=== PATIENT | female | born 1960 | race Caucasian/White ===

== ENCOUNTER 2017-01-15 10:00 | Inpatient (IN) ==
[2017-01-15 12:07] LABS: Appearance,Urine HAZY; Bilirubin,Urine NEG (NEG); Color,Urine YELLOW; Glucose,Urine (UA) NEGATIVE (NEG); Leukocyte Esterase,Urine NEG /uL (NEG); Nitrate,Urine NEG (NEG); Protein,Urine NEG (NEG); Specific Gravity,Urine 1.014 (1.000-1.035); Urine Blood NEG mg/dL (<0.03); Urobilinogen,Urine NEG (NEG)
[2017-01-15 13:59] LABS: Basophils # (Auto) 0 K/mcL (0.0-0.3); Basophils % (Auto) 0.4 % (0.0-2.0); Eosinophils # (Auto) 0.1 K/mcL (0.0-0.7); Eosinophils % (Auto) 2.7 % (0.0-7.0); Granulocytes % (Auto) 67.6 % (38.0-78.0); Lymphocytes # (Auto) 1.2 K/mcL (1.5-4.8); Mean Cell Volume 89.5 fL (80.0-100.0); Mean Corpuscular HGB Conc 33.3 g/dL (31.0-36.0); Mean Corpuscular Hemoglobin 29.8 pg (26.0-34.0); Monocytes # (Auto) 0.3 K/mcL (0.1-0.9); Monocytes % (Auto) 5.3 % (1.0-12.0); Platelet Count 215 K/mcL (140-440); RBC 4.48 M/mcL (4.00-5.20); Red Cell Distribution Width 15.2 % (11.5-14.5)
[2017-01-15 14:01] LABS: Blood Urea Nitrogen 8 mg/dl (6-20)
[2017-01-19] MEDS ORDERED: PREGABALIN 75 MG CAPSULE PO SCH (06:00)
[2017-01-19] MEDS ORDERED: CELECOXIB 200 MG CAPSULE PO SCH (06:00)
[2017-01-19] MEDS ORDERED: ceFAZolin 1 GM VIAL IV SCH (06:00)
[2017-01-19] MEDS ORDERED: oxyCODONE 10 MG TAB.ER.12H PO SCH (06:00)
[2017-01-19] MEDS ORDERED: ACETAMINOPHEN 500 MG TABLET PO SCH (06:00)
[2017-01-19] MEDS ORDERED: KETOROLAC 30 MG, ROPIVACAINE HCL/PF 49.5 ML, EPINEPHrine 0.5 MG, 0.9 % SODIUM CHLORIDE ... IJ ONE (07:30)
[2017-01-19] MEDS ORDERED: GLYCOPYRROLATE 0.2 MG/ML VIAL IV ONE (12:20)
[2017-01-19] MEDS ORDERED: TRANEXAMIC ACID 1,000 MG/10 ML VIAL IV ONE (12:20)
[2017-01-19] MEDS ORDERED: KETAMINE 100 MG/ML ML IV ONE (12:20)
[2017-01-19] MEDS ORDERED: PHENYLEPHRINE 10 MG/ML VIAL IV ONE (12:20)
[2017-01-19] MEDS ORDERED: ONDANSETRON 4 MG/2 ML VIAL IV ONE (12:20)
[2017-01-19] MEDS ORDERED: PROPOFOL 200 MG/20 ML VIAL IV ONE (12:20)
[2017-01-19] MEDS ORDERED: LIDOCAINE HCL/PF 100 MG/5 ML SYRINGE IV ONE (12:20)
[2017-01-19] MEDS ORDERED: ESMOLOL 100 MG/10 ML VIAL IV ONE (12:20)
[2017-01-19] MEDS ORDERED: BUPIVACAINE PF 0.5% 30 ML VIAL IJ ONE (12:20)
[2017-01-19] MEDS ORDERED: MIDAZOLAM 2 MG/2 ML VIAL IV ONE (12:20)
[2017-01-19] MEDS ORDERED: GENTAMICIN SULFATE 800 MG/20 ML VIAL IR ONE (12:40)
[2017-01-19] MEDS ORDERED: IPRATROPIUM/ALBUTEROL 3 ML AMPUL.NEB NEB PRN (13:50)
[2017-01-19] MEDS ORDERED: METHOCARBAMOL 1,000 MG/10 ML VIAL IV PRN (13:50)
[2017-01-19] MEDS ORDERED: MEPERIDINE 25 MG/ML SYRINGE IV PRN (13:50)
[2017-01-19] MEDS ORDERED: BENZOCAINE/MENTHOL 1 LOZENGE PO PRN ×2 (13:50→13:53)
[2017-01-19] MEDS ORDERED: ONDANSETRON 4 MG/2 ML VIAL IV PRN ×2 (13:50→13:53)
[2017-01-19] MEDS ORDERED: ePHEDrine 50 MG/ML AMPUL IV PRN (13:50)
[2017-01-19] MEDS ORDERED: fentaNYL 100 MCG/2 ML VIAL IV PRN (13:50)
--- NOTE | 2017-01-19 13:52 | Brief Operative Note ---
Date of procedure: 01/19/17 Pre-op diagnosis: Left knee djd Post-op diagnosis: same Procedure: Left TKA cemented Grafts/Implants: Yes Anesthesia: GETA Complications Description: 01/19/17 13:52 none Surgeon: Moses Powell Heat Treater Apprentice: Billy Amador Estimated blood loss (cc): 20 Tourniquet Time (Minutes): 50 Specimens Removed/Pathology: none sent Condition: stable Disposition: PACU
[2017-01-19] MEDS ORDERED: HYDROmorphone 2 MG/ML SYRINGE IV PRN (13:53)
[2017-01-19] MEDS ORDERED: MAGNESIUM HYDROXIDE 30 ML ORAL.SUSP PO PRN (13:53)
[2017-01-19] MEDS ORDERED: FLEETS ADULT ENEMA PR PRN (13:53)
[2017-01-19] MEDS ORDERED: ACETAMINOPHEN 325 MG TABLET PO PRN (13:53)
[2017-01-19] MEDS ORDERED: BISACODYL 10 MG SUPP.RECT PR PRN (13:53)
[2017-01-19] MEDS ORDERED: POLYETHYLENE GLYCOL 3350 17 GM PACKET PO PRN (13:53)
[2017-01-19] MEDS ORDERED: TEMAZEPAM 15 MG CAPSULE PO PRN (13:53)
[2017-01-19] MEDS ORDERED: TRANEXAMIC ACID 1,000 MG/10 ML VIAL IV SCH (13:53)
[2017-01-19] MEDS ORDERED: SUMAtriptan SUCCINATE 25 MG TABLET PO PRN (13:56)
[2017-01-19] MEDS ORDERED: TRAMADOL 100 MG PO PRN (13:56)
[2017-01-19] MEDS ORDERED: LACTATED RINGERS 1,000 ML IV SCH (14:00)
--- NOTE | 2017-01-19 14:57 | XRay Report ---
HISTORY: Reason for Exam:Post-Op Total Knee FINDINGS: There is a well positioned total knee prosthesis. No fracture is present. There are no abnormal soft tissue calcifications. IMPRESSION: Well-positioned left knee prosthesis Interpreted and Authenticated by: Anders Aden 01/19/17
[2017-01-19] MEDS: 0.9 % SODIUM CHLORIDE 10 ML SYRINGE IV SCH ×2 (15:18→22:38)
[2017-01-19] MEDS: 0.45 % SODIUM CHLORIDE 1,000 ML IV SCH (15:18)
[2017-01-19] MEDS: ACETAMINOPHEN 1,000 MG/100 ML BOTTLE IV SCH ×2 (16:05→23:03)
[2017-01-19] MEDS: KETOROLAC 15 MG/ML VIAL IV SCH (17:26)
[2017-01-19] MEDS: ASPIRIN 325 MG ENTERIC COATED TABLET PO SCH (20:21)
[2017-01-19] MEDS: DOCUSATE SODIUM 100 MG CAPSULE PO SCH (20:21)
[2017-01-19] MEDS: HYDROXYCHLOROQUINE 200 MG TABLET PO SCH (20:21)
[2017-01-19] MEDS: ceFAZolin 1 GM VIAL IV SCH (20:21)
[2017-01-19] MEDS: DULoxetine 30 MG CAPSULE PO SCH (20:21)
[2017-01-19] MEDS: HYDROcodone/APAP 10/325MG TABLET PO PRN ×2 (20:38→21:40)
[2017-01-19] MEDS ORDERED: Melatonin [Melatonin] 3 MG Tablet PO SCH (21:00)
[2017-01-19] MEDS ORDERED: SIMVASTATIN 20 MG TABLET PO SCH (21:00)
[2017-01-19] MEDS ORDERED: traZODone HCL 150 MG TABLET PO SCH (21:00)
[2017-01-19] MEDS ORDERED: TOPIRAMATE 25 MG TABLET PO SCH (21:00)
[2017-01-19] MEDS ORDERED: FLUTICASONE PROPIONATE SPRAY.NAS NS SCH (21:00)
[2017-01-19] MEDS ORDERED: SENNOSIDES 1 TABLET PO SCH (21:00)
[2017-01-20] MEDS: KETOROLAC 15 MG/ML VIAL IV SCH ×3 (00:08→11:42)
[2017-01-20] MEDS: 0.45 % SODIUM CHLORIDE 1,000 ML IV SCH ×3 (00:29→13:23)
[2017-01-20] MEDS ORDERED: ACETAMINOPHEN 1,000 MG/100 ML BOTTLE IV PRN (01:16)
[2017-01-20] MEDS: HYDROcodone/APAP 10/325MG TABLET PO PRN ×2 (02:20→09:34)
[2017-01-20] MEDS: ceFAZolin 1 GM VIAL IV SCH (04:09)
[2017-01-20] MEDS: 0.9 % SODIUM CHLORIDE 10 ML SYRINGE IV SCH ×2 (05:11→14:29)
[2017-01-20] MEDS ORDERED: LEVOTHYROXINE 50 MCG TABLET PO SCH (07:30)
--- NOTE | 2017-01-20 08:09 | Discharge Summary ---
Ortho Discharge - TKA - Patient Instructions Diet: Regular Diet Activity: activity as tolerated, weight bearing as tolerated Total Knee Protocol: For Total Knee: Start ROM FLORENCE with stationary bike or rocking chair. Work on gaining full extension of knee. Posterior dislocation precautions provided. Hip abductor strengthening and gait training instructions provided. Apply Cryocuff as instructed. Dressing Care: Aquacel Ag - leave on for 5 days Patient Education: Total Knee Replacement (DC) Additional Instructions: CPM for home use. Your physical Therapy has been scheduled with [facility]. - Follow Up Plan Follow Up Appointments: Billy Amador PA-C [Physician Regional Airline Pilot] - 02/03/17 8:10 am Disposition: Home, Self-Care Prognosis: Good Rehab Potential: Good I certify that the patient requires SNF services: Yes Overall status at discharge: patient is progressing back to baseline - Orders For Discharge Additional Discharge Orders: Physical Therapy at Discharge - TKA Location: Determined By Patient CPM Discharge Order Location: Determined By Patient Toilet Riser Discharge Order Location: Determined By Patient Walker Location: Determined By Patient
[2017-01-20] MEDS: HYDROXYCHLOROQUINE 200 MG TABLET PO SCH (08:25)
[2017-01-20] MEDS: DULoxetine 30 MG CAPSULE PO SCH (08:26)
[2017-01-20] MEDS: DOCUSATE SODIUM 100 MG CAPSULE PO SCH (08:26)
[2017-01-20] MEDS: ASPIRIN 325 MG ENTERIC COATED TABLET PO SCH (08:26)
[2017-01-20] MEDS ORDERED: VITAMIN D3 1,000 UNIT TABLET PO SCH (09:00)
[2017-01-20] MEDS ORDERED: CHOLECALCIFEROL 50000 UNIT PO SCH (09:00)
[2017-01-20] MEDS ORDERED: MAGNESIUM PO SCH (09:00)
[2017-01-20] MEDS ORDERED: [UNRECOGNIZED DRUG - OTHER] PO SCH (09:00)
[2017-01-20] MEDS ORDERED: VIT C PO SCH (09:00)
[2017-01-20] MEDS ORDERED: FOLIC ACID 1 MG TABLET PO SCH (09:00)
[2017-01-20] MEDS ORDERED: amLODIPine 5 MG TABLET PO SCH (09:00)
[2017-01-20] MEDS ORDERED: MSM PO SCH (09:00)
[2017-01-20] MEDS ORDERED: CITALOPRAM 20 MG TABLET PO SCH (09:00)
[2017-01-20] MEDS ORDERED: LORATADINE 10 MG TABLET PO SCH (09:00)
[2017-01-20] MEDS ORDERED: GLUC SU PO SCH (09:00)
[2017-01-20] MEDS ORDERED: CALCIUM W/VIT D3 500 MG TABLET PO SCH (09:00)
[2017-01-20] MEDS ORDERED: ASCORBIC ACID 500 MG TABLET PO SCH (09:00)
[2017-01-20] MEDS ORDERED: [UNRECOGNIZED DRUG - OTHER] PO SCH (09:00)
[2017-01-20] MEDS ORDERED: MULTIVIT,THER IRON,CA,FA & MIN 1 TABLET PO SCH (09:00)
[2017-01-20] MEDS ORDERED: FLU VACC QS2017-18 36MOS UP/PF 60 MCG/0.5 ML SYRINGE IM ONE (13:30)
[2017-01-21] MEDS ORDERED: METHOTREXATE SODIUM 2.5 MG TABLET PO SCH (09:00)
== END 2017-01-20 14:35 | disposition home or self-care (01) | DRG 470 ==
LOC: MEDSUR 01-19 09:45
PROVIDERS: ADMIT Orthopaedic Surgery; ATTEND Orthopaedic Surgery

== ENCOUNTER 2019-04-04 04:58 | Inpatient (IN) ==
[2019-03-29 14:15] LABS: Appearance,Urine HAZY; Bacteria,Urine 0 /hpf (0); Bilirubin,Urine NEG (NEG); Color,Urine YELLOW; Culture Indicated,Urine NO; Glucose,Urine (UA) NEGATIVE (NEG); Ketones,Urine NEG (NEG); Leukocyte Esterase,Urine NEG /uL (NEG); Mucus,Urine MANY /hpf (0); Nitrate,Urine NEG (NEG); Protein,Urine 100 mg/dL (NEG); Specific Gravity,Urine 1.019 (1.000-1.035); Urine Blood NEG mg/dL (<0.03); Urine Hyaline Cast 71 /lpf (0-2); Urine RBC 1 /hpf (0-1); Urine Squamous Epithelial Cell 26 /hpf (0-4); Urine Transitional Epi Cells < 1 /hpf (0-2); Urine WBC 2 /hpf (0-4); Urobilinogen,Urine NEG (NEG)
[2019-03-29 14:27] LABS: Basophils # (Auto) 0 K/mcL (0.0-0.3); Basophils % (Auto) 0.5 % (0.0-2.0); Eosinophils # (Auto) 0 K/mcL (0.0-0.7); Eosinophils % (Auto) 0 % (0.0-7.0); Granulocytes % (Auto) 63.6 % (38.0-78.0); Hematocrit 44.4 % (36.0-48.0); Hemoglobin 14.3 g/dL (12.0-15.0); Lymphocytes # (Auto) 1.3 K/mcL (1.5-4.8); Lymphocytes % (Auto) 28.5 % (15.5-49.0); Mean Cell Volume 86.7 fL (80.0-100.0); Mean Corpuscular HGB Conc 32.2 g/dL (31.0-36.0); Mean Platelet Volume 10.1 fL (7.4-10.4); Monocytes # (Auto) 0.3 K/mcL (0.1-0.9); Monocytes % (Auto) 7.4 % (1.0-12.0); Platelet Count 201 K/mcL (140-440); RBC 5.12 M/mcL (4.00-5.20); Red Cell Distribution Width 13.9 % (11.5-14.5); WBC 4.4 K/mcL (4.5-11.0)
[2019-03-29 14:32] LABS: Blood Urea Nitrogen 8 mg/dl (6-20); Calcium 9.5 mg/dl (8.6-10.4); Carbon Dioxide 28 mmol/L (22-30); Chloride 104 mmol/L (96-108); Glomerular Filtration Rate 56; Glucose 85 mg/dL (70-105)
[2019-04-04] MEDS ORDERED: IPRATROPIUM/ALBUTEROL 3 ML AMPUL.NEB NEB PRN ×2 (05:00→08:15)
[2019-04-04] MEDS ORDERED: SCOPOLAMINE 1 PATCH PATCH TOPICAL PRN (05:00)
[2019-04-04] MEDS ORDERED: ACETAMINOPHEN 500 MG TABLET PO SCH (06:00)
[2019-04-04] MEDS ORDERED: ceFAZolin 2 GM in DEXTROSE 5% IN WATER 50 ML IV SCH (06:00)
[2019-04-04] MEDS ORDERED: PREGABALIN 75 MG CAPSULE PO SCH (06:00)
[2019-04-04] MEDS ORDERED: CELECOXIB 200 MG CAPSULE PO SCH (06:00)
[2019-04-04] MEDS ORDERED: oxyCODONE 10 MG TAB.ER.12H PO SCH (06:00)
[2019-04-04] MEDS ORDERED: GENTAMICIN SULFATE 800 MG/20 ML VIAL IR ONE (07:14)
[2019-04-04] MEDS ORDERED: fentaNYL 250 MCG/5 ML VIAL IV ONE (07:40)
[2019-04-04] MEDS ORDERED: ROPIVACAINE HCL/PF 30 ML VIAL IJ ONE (07:40)
[2019-04-04] MEDS ORDERED: KETAMINE 100 MG/ML ML IV ONE (07:40)
[2019-04-04] MEDS ORDERED: DEXAMETHASONE 10 MG/ML VIAL IV ONE (07:40)
[2019-04-04] MEDS ORDERED: PROPOFOL 200 MG/20 ML VIAL IV ONE (07:40)
[2019-04-04] MEDS ORDERED: SUCCINYLCHOLINE 20 MG/ML ML IV ONE (07:40)
[2019-04-04] MEDS ORDERED: ONDANSETRON 4 MG/2 ML VIAL IV ONE (07:40)
[2019-04-04] MEDS ORDERED: LIDOCAINE HCL/PF 100 MG/5 ML SYRINGE IV ONE (07:40)
[2019-04-04] MEDS ORDERED: BENZOCAINE/MENTHOL 1 LOZENGE PO PRN ×2 (08:15→08:44)
[2019-04-04] MEDS ORDERED: METHOCARBAMOL 1,000 MG/10 ML VIAL IV PRN (08:15)
[2019-04-04] MEDS ORDERED: diphenhydrAMINE 50 MG/ML VIAL IV PRN (08:15)
[2019-04-04] MEDS ORDERED: ONDANSETRON 4 MG/2 ML VIAL IV PRN ×2 (08:15→08:44)
[2019-04-04] MEDS ORDERED: NALOXONE HCL 0.4 MG/ML VIAL IV PRN (08:15)
[2019-04-04] MEDS ORDERED: MEPERIDINE 25 MG/ML SYRINGE IV PRN (08:15)
[2019-04-04] MEDS ORDERED: LACTATED RINGERS 1,000 ML IV SCH (08:15)
[2019-04-04] MEDS ORDERED: fentaNYL 100 MCG/2 ML VIAL IV PRN (08:15)
[2019-04-04] MEDS ORDERED: FLUMAZENIL 0.1 MG/ML ML IV PRN (08:15)
[2019-04-04] MEDS ORDERED: LACTATED RINGERS 250 ML IV PRN (08:15)
[2019-04-04] MEDS ORDERED: PROMETHAZINE 25 MG/ML VIAL IV PRN (08:15)
[2019-04-04] MEDS ORDERED: POLYETHYLENE GLYCOL 3350 17 GM PACKET PO PRN (08:44)
[2019-04-04] MEDS ORDERED: TRANEXAMIC ACID 1,000 MG/10 ML VIAL IV ONE (08:44)
[2019-04-04] MEDS ORDERED: MAGNESIUM HYDROXIDE 30 ML ORAL.SUSP PO PRN (08:44)
[2019-04-04] MEDS ORDERED: FLEETS ADULT ENEMA PR PRN (08:44)
[2019-04-04] MEDS ORDERED: TEMAZEPAM 15 MG CAPSULE PO PRN (08:44)
[2019-04-04] MEDS ORDERED: HYDROmorphone 2 MG/ML VIAL IV PRN (08:44)
[2019-04-04] MEDS ORDERED: ACETAMINOPHEN 325 MG TABLET PO PRN (08:44)
[2019-04-04] MEDS ORDERED: BISACODYL 10 MG SUPP.RECT PR PRN (08:44)
[2019-04-04] MEDS ORDERED: KETOROLAC 15 MG/ML VIAL IV PRN (08:44)
--- NOTE | 2019-04-04 08:44 | Brief Operative Note ---
Date of procedure: 04/04/19 Pre-op diagnosis: Right shoulder rca and bicep tear Post-op diagnosis: same Procedure: Right reverse tsa and bicep tenodesis Grafts/Implants: Yes Anesthesia: GETA Complications: none Surgeon: Moses Powell Server Engineer: Billy Amador Estimated blood loss (cc): 100 Tourniquet Time (Minutes): 0 Specimens Removed/Pathology: none sent Condition: stable Disposition: PACU
[2019-04-04] MEDS ORDERED: ALBUTEROL SULFATE 1 PUFF INHALER INH PRN (08:46)
[2019-04-04] MEDS ORDERED: SUMAtriptan SUCCINATE 25 MG TABLET PO PRN (08:46)
[2019-04-04] MEDS ORDERED: EPINEPHRINE 0.3 MG IM PRN (08:46)
[2019-04-04] MEDS ORDERED: BACLOFEN 10 MG TABLET PO PRN (08:46)
[2019-04-04] MEDS ORDERED: CPAP MACHINE SCH (09:00)
[2019-04-04] MEDS ORDERED: [UNRECOGNIZED DRUG - OTHER] SCH (09:00)
--- NOTE | 2019-04-04 09:42 | Operative Note ---
DATE OF OPERATION: 04/04/2019 PREOPERATIVE DIAGNOSES: Right shoulder severe degenerative arthritis, biceps tendinopathy, and a tear of the rotator cuff. POSTOPERATIVE DIAGNOSES: Right shoulder severe degenerative arthritis, biceps tendinopathy, and a tear of the rotator cuff. PROCEDURE: Right reverse total shoulder with biceps tenodesis. SURGEON: Moses Powell M.D. ELECTRIC INSTALLER: Billy Amador PA-C. The PA's assistance was required for the safe and efficient completion of the entire case. This provider's expertise and technical skill were required throughout the case. The PA assisted with preoperative coordination, intraoperative retraction, wound closure, dressing and splint application, as well as postoperative documentation and care coordination. ANESTHESIA: General LMA anesthesia. COMPLICATIONS: None. DESCRIPTION OF PROCEDURE: The patient was brought to the operating room and put to sleep with general LMA anesthesia. Once asleep, the patient had the right shoulder sterilely prepped and draped in the usual sterile fashion. A timeout was performed. We confirmed the operative site by initials, consent form and x-rays. Once all was done, we then made a deltopectoral approach. Preop antibiotics and tranexamic acid had been given. The deltopectoral approach was performed without any problem. We exposed the joint, released the subscap which was intact, harvested the biceps tendon and tenodesed it to the pectoralis major muscle with a #2 FiberWire. This was securely fixed. We then subluxed the humeral head. Once this was subluxed, the subscap retracted medially. We released the capsule inferiorly and then using the alignment guide for the neck cut from Sebastian, we then made our cut at 130 degrees of inclination and 20 degrees of retroversion. Once this was all done, we were able to then sublux the head posteriorly. We performed a 360-degree capsular release. Released the inferior capsule and placed the pin centrally. Once this was done, we reamed up to the size of 40, placed a ___ metaglene with 32 central screw. The other screws measured 32, 28 and 24. These all seemed to fit very nicely. Good fixation. We had good bleeding bone half way up the glenoid. Once we had this fixed, we then placed a 36 mm glenosphere with 2 mm of the eccentricity and 2 mm of offset. Once securely impacted, we then prepared the humeral side. This was broached up to the size 9. A 9 implant was trialed and fit very nicely with a standard poly. We took the shoulder through the full arc of motion. There was deficiency of the cuff so this was the reason the reverse shoulder was chosen because of the failure rate of and the size of the tear of the supraspinatus. Once this was done, we irrigated thoroughly and implanted a size 9 stem with a small amount of cement distally with a small amount of antibiotic within the cement because of the patient's obesity. We then placed a standard poly and this was reduced. We took the arm back through the range of motion, very stable. We irrigated thoroughly and then repaired the deltopectoral interval with Stratafix. The skin was closed with Stratafix and Monocryl and adhesive closure. Sterile bandage was applied and a Donjoy sling was fitted and given to the patient. RBH:salma Job ID: [id number] Doc ID: [id number] Moses Powell MD
--- NOTE | 2019-04-04 10:03 | XRay Report ---
HISTORY: Postop right shoulder arthroplasty FINDINGS: There is a well-positioned reverse shoulder prosthesis. There is no fracture or abnormal soft tissue calcification. Incidentally noted is moderate arthritis in the right side facet joints in the mid cervical spine. This is causing stenosis of the neural foramina. Lung volumes are very small in volume due to poor inspiration. IMPRESSION: Well-positioned right shoulder prosthesis Interpreted and Authenticated by: Anders Aden 04/04/19
[2019-04-04] MEDS: LACTATED RINGERS 1,000 ML IV SCH ×2 (10:09→19:42)
[2019-04-04] MEDS: POLYETHYLENE GLYCOL 3350 17 GM PACKET PO SCH ×2 (10:43→12:25)
[2019-04-04] MEDS: DOCUSATE SODIUM 100 MG CAPSULE PO SCH ×3 (10:43→20:40)
[2019-04-04] MEDS: CITALOPRAM 20 MG TABLET PO SCH ×2 (10:43→11:38)
[2019-04-04] MEDS: amLODIPine 5 MG TABLET PO SCH (10:43)
[2019-04-04] MEDS: LISINOPRIL 20 MG TABLET PO SCH (10:44)
[2019-04-04] MEDS: PILOCARPINE PO SCH ×3 (10:44→20:43)
[2019-04-04] MEDS: traMADol 50 MG TABLET PO SCH ×2 (10:44→16:30)
[2019-04-04] MEDS: HYDROXYCHLOROQUINE 200 MG TABLET PO SCH ×3 (10:44→20:40)
[2019-04-04] MEDS: oxyCODONE/APAP 5/325MG TABLET PO PRN ×3 (11:47→20:42)
--- NOTE | 2019-04-04 12:56 | Discharge Summary ---
Ortho Discharge - TSA - Patient Instructions Diet: Regular Diet Activity: activity as tolerated, weight bearing as tolerated Total Shoulder Protocol: Leave immobilizer in place except for bathing and ROM. Abduction pillow. Continue to wear sling until seen by physician. Codman Pendulum : These exercises use momentum produced by your body to move your shoulder joint. Bend your knees and shift your weight to your front leg, then back, allowing your arm to swing in the same directions. Using the same technique, alternately shift your weight between your right and left legs, allowing your arm to swing from side to side. These exercises are also performed in counterclockwise and clockwise circular motions. Typically these exercises are performed several times per day, for a set number repetitions or minutes, such as 20 times in a row or 5 minutes at a time. Dressing Care: May shower in 2 days - Follow Up Plan Follow Up Appointments: Billy Amador PA-C [Physician Sticker Machine Operator] - 04/19/19 10:00 am Disposition: Home, Self-Care Prognosis: Good Rehab Potential: Good I certify that the patient requires SNF services: No Overall status at discharge: patient is progressing back to baseline - Orders For Discharge Prescriptions: Docusate Sodium [Colace] 100 mg PO BID #60 cap Transmission Status: Pending to [facility] oxyCODONE/APAP [Percocet 5-325 mg] 1 - 2 tab PO Q4HP PRN #75 tab PRN Reason: Pain Level 3-6 Prescription Printed
[2019-04-04] MEDS: 0.9 % SODIUM CHLORIDE 10 ML SYRINGE IV SCH ×2 (14:22→20:42)
[2019-04-04] MEDS: ceFAZolin 1 GM VIAL IV SCH ×2 (15:03→21:30)
[2019-04-04] MEDS ORDERED: TOPIRAMATE 25 MG TABLET PO SCH (21:00)
[2019-04-04] MEDS ORDERED: MELATONIN PO SCH (21:00)
[2019-04-04] MEDS ORDERED: ZOLPIDEM TARTRATE 12.5 MG PO PRN (21:00)
[2019-04-04] MEDS ORDERED: MONTELUKAST 10 MG TABLET PO SCH (21:00)
[2019-04-04] MEDS ORDERED: PYRIDOXINE HCL PO SCH (21:00)
[2019-04-04] MEDS ORDERED: SENNOSIDES 1 TABLET PO SCH (21:00)
[2019-04-05] MEDS: traMADol 50 MG TABLET PO SCH ×2 (00:06→07:43)
[2019-04-05] MEDS: oxyCODONE/APAP 5/325MG TABLET PO PRN ×2 (04:06→11:50)
[2019-04-05] MEDS: 0.9 % SODIUM CHLORIDE 10 ML SYRINGE IV SCH ×2 (04:06→14:04)
[2019-04-05] MEDS ORDERED: LEVOTHYROXINE 50 MCG TABLET PO SCH (07:30)
[2019-04-05] MEDS ORDERED: OMEPRAZOLE 20 MG CAPSULE PO SCH (07:30)
--- NOTE | 2019-04-05 07:36 | Orthopedic Progress Note ---
Subjective Patient information: Note initiated : 04/05/19 at 7:35 am Service Date, if different from initiated Date: [] Patient: Nelda Ritchie 59 y/o F admitted on 04/04/19 for Right Reverse Total Shoulder vs. Primary. Chief Complaint: [Pt is stable this morning on post operative day 1 without any significant concerns or complaints. Patients vital signs have remained stable. Patients dressing is dry and is grossly intact from a neurovascular and motor standpoint. Patients 10 point ROS is otherwise negative. ] Objective Vital signs: Vital Signs Temp Pulse Resp BP BP Pulse Ox 04/05/19 03:37 97.9 F 88 12 122/70 96 04/04/19 23:59 98.1 F 88 14 112/66 94 04/04/19 23:58 88 04/04/19 19:14 18 94 04/04/19 18:56 98.2 F 89 12 111/69 93 04/04/19 16:00 98.5 F 93 H 18 120/65 94 04/04/19 12:45 88 18 110/66 92 04/04/19 11:45 99.0 F 86 18 104/65 91 04/04/19 11:15 91 H 16 109/70 93 04/04/19 10:45 96 H 16 109/69 93 04/04/19 10:30 89 18 111/68 93 04/04/19 10:15 91 H 16 105/64 93 04/04/19 10:00 98.4 F 95 H 16 112/72 90 04/04/19 09:46 98.3 F 96 H 22 121/53 93 04/04/19 09:31 98.0 F 98 H 21 131/70 99 04/04/19 09:16 98.0 F 86 17 121/55 99 04/04/19 09:11 76 13 122/74 100 04/04/19 09:06 74 16 126/63 99 04/04/19 09:01 97.7 F 76 12 143/89 100 Intake and Output 04/04/19 04/05/19 04/05/19 21:59 05:59 13:59 Intake Total 350 Output Total 450 350 Balance -450 0 Intake: Oral 350 Output: Void Amount 450 350 Other: Urine Appearance Clear Urine Color Bright Yellow Urine Odor Normal Weight 240 lb 12.8 oz Intake & Output: Intake & Output 04/04/19 04/05/19 04/05/19 21:59 05:59 13:59 Intake Total 350 Output Total 450 350 Balance -450 0 Weight 240 lb 12.8 oz Intake: Oral 350 Output: Void Amount 450 350 Other: Urine Appearance Clear Urine Color Bright Yellow Urine Odor Normal Incision: Yes healing Incision clean and dry: Yes Dressing: Yes clean Weight bearing status: full Neurological exam IM: Yes motor sensory intact, Yes neurovascular intact Extremities exam IM: Yes Foot pink and warm, Yes neurovascular intact - Labs CBC & BMP: 03/29/19 10:52 03/29/19 10:52 Labs: 03/29/19 10:52 Hgb 14.3 Hct 44.4 Assessment and Plan (1) History of reverse total replacement of right shoulder joint The patient has been educated regarding dressing care, Physical Therapy recomm endations, home exercises, restrictions, and follow up appointments. The patient has had all necessary DME prescribed. The patient has remained relatively stable during their hospital course. Leave Dermabond patch intact until followup Status: Acute (2) History of reverse total replacement of right shoulder joint Status: Acute
[2019-04-05] MEDS: CITALOPRAM 20 MG TABLET PO SCH (07:42)
[2019-04-05] MEDS: DOCUSATE SODIUM 100 MG CAPSULE PO SCH (07:43)
[2019-04-05] MEDS: HYDROXYCHLOROQUINE 200 MG TABLET PO SCH (07:43)
[2019-04-05] MEDS: LISINOPRIL 20 MG TABLET PO SCH (07:43)
[2019-04-05] MEDS: amLODIPine 5 MG TABLET PO SCH (07:43)
[2019-04-05] MEDS: POLYETHYLENE GLYCOL 3350 17 GM PACKET PO SCH ×2 (07:44→07:54)
[2019-04-05] MEDS: PILOCARPINE PO SCH (07:51)
[2019-04-11] MEDS ORDERED: ERGOCALCIFEROL (VITAMIN D2) 50,000 UNIT CAPSULE PO SCH (09:00)
== END 2019-04-05 13:45 | disposition home or self-care (01) | DRG 483 ==
LOC: MEDSUR 04:58
PROVIDERS: ADMIT Orthopaedic Surgery; ATTEND Orthopaedic Surgery

== ENCOUNTER 2020-01-26 06:55 | Inpatient (IN) ==
[2020-01-20 13:18] LABS: Basophils # (Auto) 0.03 K/mcL (0.00-0.20); Basophils % (Auto) 0.6 % (0.0-2.0); Eosinophils # (Auto) 0.15 K/mcL (0.00-0.70); Hematocrit 42.6 % (36.0-48.0); Hemoglobin 13.3 g/dL (12.0-15.0); Lymphocytes % (Auto) 35.5 % (15.0-49.0); Mean Cell Volume 88.8 fL (80.0-100.0); Mean Corpuscular HGB Conc 31.2 g/dL (31.0-36.0); Monocytes # (Auto) 0.44 K/mcL (0.10-0.90); Monocytes % (Auto) 8.7 % (1.0-12.0); Neutrophils % (Auto) 52.2 % (38.0-78.0); Platelet Count 245 K/mcL (140-440); Red Cell Distribution Width 14.2 % (11.5-14.5); WBC 5.1 K/mcL (4.5-11.0)
[2020-01-20 14:09] LABS: INR 0.9 (0.9-1.1); Prothrombin Time 12.9 sec (11.9-14.5)
[2020-01-20 15:32] LABS: Blood Urea Nitrogen 15 mg/dL (6-20); Calcium 8.9 mg/dL (8.6-10.4); Carbon Dioxide 22 mmol/L (22-30); Chloride 106 mmol/L (96-108); Glomerular Filtration Rate 55; Glucose 80 mg/dL (70-105)
[2020-01-20 15:52] LABS: Appearance,Urine HAZY (Clear); Bilirubin,Urine Negative (Negative); Color,Urine YELLOW; Culture Indicated,Urine No; Glucose,Urine (UA) Negative (Negative); Ketones,Urine Negative (Negative); Leukocyte Esterase,Urine 500 /ug (Negative); Mucus,Urine FEW /hpf; Nitrate,Urine Negative (Negative); Protein,Urine 30 mg/dL (Negative); Specific Gravity,Urine 1.016 (1.000-1.035); Urine Blood Negative (Negative); Urine RBC 0 /hpf (0-1); Urine Squamous Epithelial Cell 5 /hpf (0-4); Urine WBC 28 /hpf (0-4); Urobilinogen,Urine Negative
[~2020-01-26 06:55] MED LIST: 0.9 % SODIUM CHLORIDE 9 ML, KETOROLAC 30 MG, ROPIVACAINE HCL/PF 49.5 ML, EPINEPHrine 0.... IJ SCH; ceFAZolin 2 GM in DEXTROSE 5% IN WATER 50 ML IV SCH
[2020-01-26] MEDS ORDERED: IPRATROPIUM/ALBUTEROL 3 ML AMPUL.NEB NEB PRN ×2 (07:00→10:56)
[2020-01-26] MEDS ORDERED: SCOPOLAMINE 1 PATCH PATCH TOPICAL PRN (07:00)
[2020-01-26] MEDS ORDERED: PROPOFOL 200 MG/20 ML VIAL IV ONE (09:59)
[2020-01-26] MEDS ORDERED: LIDOCAINE HCL/PF 100 MG/5 ML SYRINGE IV ONE (09:59)
[2020-01-26] MEDS ORDERED: GLYCOPYRROLATE 0.2 MG/ML VIAL IV ONE (09:59)
[2020-01-26] MEDS ORDERED: MIDAZOLAM 2 MG/2 ML VIAL ONE (09:59)
[2020-01-26] MEDS ORDERED: ONDANSETRON 4 MG/2 ML VIAL ONE (09:59)
[2020-01-26] MEDS ORDERED: DEXAMETHASONE 10 MG/ML VIAL ONE (09:59)
[2020-01-26] MEDS ORDERED: KETAMINE HCL 50 MG/ML ML ONE (09:59)
[2020-01-26] MEDS ORDERED: fentaNYL 100 MCG/2 ML VIAL IV PRN (10:56)
[2020-01-26] MEDS ORDERED: ONDANSETRON 4 MG/2 ML VIAL IV PRN ×2 (10:56→11:04)
[2020-01-26] MEDS ORDERED: BENZOCAINE/MENTHOL 1 LOZENGE PO PRN ×2 (10:56→11:04)
[2020-01-26] MEDS ORDERED: ACETAMINOPHEN 1,000 MG/100 ML BOTTLE IV ONE (10:56)
[2020-01-26] MEDS ORDERED: METHOCARBAMOL 1,000 MG/10 ML VIAL IV PRN ×2 (10:56→11:04)
[2020-01-26] MEDS ORDERED: LACTATED RINGERS 1,000 ML IV SCH (11:00)
[2020-01-26] MEDS ORDERED: POLYETHYLENE GLYCOL 3350 17 GM PACKET PO PRN (11:04)
[2020-01-26] MEDS ORDERED: ACETAMINOPHEN 325 MG TABLET PO PRN (11:04)
[2020-01-26] MEDS ORDERED: TRANEXAMIC ACID 1,000 MG/10 ML VIAL IV SCH (11:04)
[2020-01-26] MEDS ORDERED: SUMAtriptan SUCCINATE 50 MG TABLET PO PRN (11:11)
[2020-01-26] MEDS ORDERED: ALBUTEROL SULFATE 200 PUFF INHALER INH PRN (11:11)
[2020-01-26] MEDS ORDERED: traZODone HCL 150 MG TABLET PO PRN (11:11)
[2020-01-26] MEDS ORDERED: MELATONIN 3 MG TABLET PO PRN (11:11)
[2020-01-26] MEDS ORDERED: NON FORMULARY MEDICATION 1 DOSE MISCELL (Epinephrine [Epipen] 0.3 MG) IM PRN (11:11)
[2020-01-26] MEDS ORDERED: BACLOFEN 10 MG TABLET PO PRN (11:11)
--- NOTE | 2020-01-26 11:18 | Brief Operative Note ---
Brief Operative Note Date of procedure: 01/26/20 Pre-op diagnosis: instability left knee replacement Post-op diagnosis: same Procedure: liner exchange Grafts/Implants: Yes Anesthesia: GETA Findings: instability Complications: none Surgeon: Rahat Bradshaw Tourniquet Time (Minutes): 21 Specimens Removed/Pathology: none sent Condition: stable Disposition: PACU
--- NOTE | 2020-01-26 11:46 | XRay Report ---
CLINICAL INFORMATION: Post-op total knee COMPARISON: None. FINDINGS: Total knee prostheses is anatomically aligned. No osseous abnormality. Soft tissue swelling seen as expected IMPRESSION: Negative Interpreted and Authenticated by: Richy Pacheco 01/26/20
[2020-01-26] MEDS: 0.9 % SODIUM CHLORIDE 1,000 ML IV SCH ×2 (12:06→22:01)
[2020-01-26] MEDS: HYDROmorphone 1 MG/ML SYRINGE IV PRN ×3 (14:28→22:04)
[2020-01-26] MEDS: PILOCARPINE HCL PO SCH ×2 (14:29→20:14)
[2020-01-26] MEDS: 0.9 % SODIUM CHLORIDE 10 ML SYRINGE IV SCH ×2 (14:41→20:14)
[2020-01-26] MEDS: ceFAZolin 1 GM VIAL IV SCH (17:05)
[2020-01-26] MEDS: oxyCODONE 10 MG TAB.ER.12H PO SCH (20:09)
[2020-01-26] MEDS: SULFAMETHOXAZOLE/TRIMETHOPRIM 1 TABLET PO SCH (20:10)
[2020-01-26] MEDS: DOCUSATE SODIUM 100 MG CAPSULE PO SCH (20:10)
[2020-01-26] MEDS: ASPIRIN 81 MG TAB.CHEW PO SCH (20:10)
[2020-01-26] MEDS: HYDROXYCHLOROQUINE 200 MG TABLET PO SCH (20:10)
[2020-01-26] MEDS ORDERED: MONTELUKAST 10 MG TABLET PO SCH (21:00)
[2020-01-26] MEDS ORDERED: TOPIRAMATE 25 MG TABLET PO SCH (21:00)
[2020-01-26] MEDS ORDERED: GABAPENTIN 300 MG CAPSULE PO SCH (21:00)
[2020-01-27] MEDS: ceFAZolin 1 GM VIAL IV SCH (00:23)
[2020-01-27] MEDS: morphine 15 MG TABLET PO PRN ×2 (03:33→05:46)
[2020-01-27] MEDS: 0.9 % SODIUM CHLORIDE 10 ML SYRINGE IV SCH (05:46)
[2020-01-27] MEDS: HYDROmorphone 1 MG/ML SYRINGE IV PRN (07:21)
[2020-01-27] MEDS ORDERED: OMEPRAZOLE 20 MG CAPSULE PO SCH (07:30)
[2020-01-27] MEDS ORDERED: LEVOTHYROXINE 50 MCG TABLET PO SCH (07:30)
--- NOTE | 2020-01-27 07:46 | Discharge Summary ---
Discharge Provider Provider Patient information: Note initiated : 01/27/20 at 7:43 am Service Date, if different from initiated Date: [] Patient: Nedla Ritchie 59 y/o F admitted on 01/26/20 for Left Total Knee Liner Exchange. Patient has had struggles with pain management overnight but otherwise is doing okay. She denies any CP, MALDONADO, fever, cough, numbness/tingling, or any other acute symptoms. Chief Complaint: [] Date of admission: 01/26/20 06:55 Discharge date: 01/27/20 Primary care physician: Soha Rabago PA-C COURSE Hospital Course Hospital course: Patient was admitted after surgery for Postop pain control and PT. Her stay was uneventful. Discharge diagnosis: s/p Left total knee liner exchange Time Spent with Patient Time attestation: Total time spent providing and/or coordinating discharge services: Physical Examination Narrative Exam Narrative: Dressings are dry and in place, NVI in entire LLE, no calf tenderness on either leg Exam Incision healing: Yes Incision draining: Yes Incision red: No Clean and dry: Yes Weight bearing status: full Range of motion: 0-90 Discharge Instructions - TKA Patient Instructions Total Knee Protocol: For Total Knee: Start ROM FLORENCE with stationary bike or rocking chair. Work on gaining full extension of knee. Posterior dislocation precautions provided. Hip abductor strengthening and gait training instructions provided. Apply Cryocuff as instructed. Leave silver dressing in place for next 7 days. Discharge Plan Patient/Caregiver Discharge Instructions Activity: as per physical therapy Diet: Regular Diet Prescriptions: New aspirin 81 mg Tablet,Chewable 81 mg PO BID Qty: 30 RF: 0 oxycodone-acetaminophen 7.5-325 mg tablet 1 tab PO Q4H PRN (Reason: pain) Qty: 60 RF: 0 Continued topiramate 25 mg tablet 25 mg PO HS Qty: 90 RF: 1 lisinopril 40 mg tablet 40 mg PO DAILY Qty: 90 RF: 1 montelukast 10 mg tablet 10 mg PO HS Qty: 90 RF: 1 levothyroxine 50 mcg tablet 50 mcg PO QAMAC Qty: 90 RF: 1 citalopram 40 mg tablet 40 mg PO DAILY Qty: 90 RF: 1 trazodone 150 mg tablet See Rx Instructions PO .COMPLEX PRN (Reason: insomnia) Qty: 90 RF: 1 pilocarpine HCl 5 mg tablet 10 mg PO TID Qty: 180 RF: 3 (DME) Auto-CPAP 02/25 cmH20 Qty: 1 RF: 0 hydroxychloroquine 200 mg tablet 200 mg PO BID Qty: 180 RF: 0 omeprazole 20 mg capsule,delayed release(DR/EC) 20 mg PO QDAY Qty: 90 RF: 1 milnacipran 50 mg tablet 50 mg PO BID Qty: 60 RF: 2 sumatriptan succinate 50 mg tablet 100 mg PO DAILYP PRN (Reason: MIGRAINES) Qty: 20 RF: 0 albuterol sulfate 90 mcg/actuation HFA aerosol inhaler 1 - 2 puff inhalation Q4-6HP PRN (Reason: shortness of breath or wheezing) Qty: 18 RF: 2 tramadol 50 mg tablet 100 mg PO Q8H PRN (Reason: pain) Qty: 180 RF: 0 baclofen 10 mg tablet 10 mg PO TIDP PRN (Reason: muscle spasm) Qty: 90 RF: 2 amlodipine 5 mg tablet See Rx Instructions .ROUTE .COMPLEX Qty: 90 RF: 1 gabapentin 300 mg capsule 600 mg PO QHS Qty: 180 RF: 0 epinephrine [EpiPen] 0.3 mg/0.3 mL auto-injector 0.3 mg IM ONCE PRN (Reason: Allergic Reaction) RF: 0 flaxseed oil [Kendall-3 Flaxseed Oil] 1,000 mg capsule 1,000 mg PO QDAY RF: 0 polyethylene glycol 3350 17 GM powder in packet 34 gm PO DAILY RF: 0 melatonin 3 mg Tablet 3 mg PO HSP PRN (Reason: Sleep) RF: 0 diclofenac sodium [Voltaren] 1 % Gel 2 g TOPICAL BID RF: 0 ergocalciferol (vitamin D2) 1,250 mcg (50,000 unit) Capsule 1,250 mcg PO QMONTH RF: 0 sulfamethoxazole-trimethoprim 1 tab PO BID RF: 0 Other Ambulatory Orders: Physical Therapy DC - TKA (Routine) Location: None Selected Ordered By: Brown Bojorquez Toilet Riser Discharge Order (ONCE) Location: None Selected Ordered By: Brown Bojorquez Walker (ONCE) Location: None Selected Ordered By: Brown Bojorquez Follow Up Plan Follow up with: Brown Bojorquez PA-C [Physician Controller Repairer And Tester] - 02/08/20 Patient Disposition: Home, Self-Care Discharge Orders: Discharge Order (Routine); Ordered 01/27/20 Ordered By: Brown Bojorquez Pending Pending Pending: Resuscitation Status Full Code Diet Regular Diet Start Dixie Jan 25 1306 Aspirin (Aspirin) 81 mg PO BID [facility] Last Admin: 01/26/20 20:10 Dose: 81 mg Documented by: JASPREET Docusate Sodium (Colace) 100 mg PO BID [facility] Last Admin: 01/26/20 20:10 Dose: 100 mg Documented by: JASPREET Gabapentin (Neurontin) 600 mg PO QHS [facility] Last Admin: 01/26/20 20:10 Dose: 600 mg Documented by: JASPREET Hydromorphone HCl (Dilaudid) 1 mg IV Q1HP PRN; Protocol PRN Reason: Per Pain Protocol Last Admin: 01/27/20 07:21 Dose: 1 mg Documented by: Admin: 01/26/20 22:04 Dose: 1 mg Documented by: Admin: 01/26/20 17:07 Dose: 1 mg Documented by: Admin: 01/26/20 14:28 Dose: 1 mg Documented by: JOHN Hydroxychloroquine Sulfate (Plaquenil) 200 mg PO BID [facility] Last Admin: 01/26/20 20:10 Dose: 200 mg Documented by: JASPREET Sodium Chloride (Sodium Chloride 0.9%) 1,000 mls @ 100 mls/hr IV .Q10H [facility] Last Admin: 01/26/20 22:01 Dose: 100 mls/hr Documented by: Infusion: 01/26/20 22:01 Dose: 100 mls/hr Documented by: Admin: 01/26/20 12:06 Dose: 100 mls/hr Documented by: JOHN Levothyroxine Sodium (Synthroid) 50 mcg PO QAMAC [facility] Last Admin: 01/27/20 07:20 Dose: 50 mcg Documented by: JUANA Melatonin (Melatonin 3mg Tablet) 3 mg PO HSP PRN PRN Reason: Sleep Last Admin: 01/26/20 21:44 Dose: 3 mg Documented by: JASPREET Montelukast Sodium (Singular) 10 mg PO HS [facility] Last Admin: 01/26/20 20:10 Dose: 10 mg Documented by: JASPREET Morphine Sulfate (Morphine) 15 - 30 mg PO Q4HP PRN; Protocol PRN Reason: Per Pain Protocol Last Admin: 01/27/20 05:46 Dose: 15 mg Documented by: Admin: 01/27/20 03:33 Dose: 15 mg Documented by: SHANTE Omeprazole (Prilosec) 20 mg PO ACB [facility] Last Admin: 01/27/20 07:21 Dose: 20 mg Documented by: JUANA Oxycodone HCl (Oxycontin) 10 mg PO BID [facility] Stop: 01/27/20 21:01 Last Admin: 01/26/20 20:09 Dose: 10 mg Documented by: JASPREET Milnacipran 50 Mg (Tab) 1 dose PO BID [facility] Last Admin: 01/26/20 20:14 Dose: Not Given Documented by: JASPREET Pilocarpine Hcl 10 (Mg Tab) 1 dose PO TID [facility] Last Admin: 01/26/20 20:14 Dose: 1 dose Documented by: Admin: 01/26/20 14:29 Dose: Not Given Documented by: JOHN Polyethylene Glycol (Miralax) 17 gm PO DAILYP PRN PRN Reason: Constipation Last Admin: 01/26/20 20:20 Dose: 17 gm Documented by: JASPREET Sodium Chloride (Saline Flush) 10 ml IV Q8 [facility] Last Admin: 01/27/20 05:46 Dose: 10 ml Documented by: Admin: 01/26/20 20:14 Dose: Not Given Documented by: Admin: 01/26/20 14:41 Dose: Not Given Documented by: JOHN Sumatriptan Succinate (Imitrex) 100 mg PO DAILYP PRN PRN Reason: MIGRAINES Last Admin: 01/27/20 05:59 Dose: 100 mg Documented by: JASPREET Topiramate (Topamax) 25 mg PO HS [facility] Last Admin: 01/26/20 20:10 Dose: 25 mg Documented by: JASPREET Trazodone HCl (Desyrel) 75 - 150 mg PO HSP PRN PRN Reason: insomnia Last Admin: 01/26/20 21:44 Dose: 150 mg Documented by: JASPREET Trimethoprim/Sulfamethoxazole (Bactrim Ds) 1 tab PO BID [facility] Last Admin: 01/26/20 20:10 Dose: 1 tab Documented by: JASPREET Shift Summary 01/27/20 05:10 Shift Summary by Kimberly Akers Pt A&O x4 and calls appropriately. Pt had numbness/tingling in left leg so BSC was used. Up with 1 assist, FWW and gait belt. Numbness and tingling now gone so pt may be able to start ambulating. VSS RA. Pt used CPM for 2.5 hrs and tolerated well. Scheduled oxycodone 10mg PO given for pain as well as dilaudid 1mg IV x1 and morphine 15mg POx1. IV to RFA is now SL. Dressing to left knee CDI. Will update at bedside. Initialized on 01/27/20 05:10 - END OF NOTE
[2020-01-27] MEDS: 0.9 % SODIUM CHLORIDE 1,000 ML IV SCH (07:47)
[2020-01-27] MEDS ORDERED: LISINOPRIL 20 MG TABLET PO SCH (09:00)
[2020-01-27] MEDS ORDERED: amLODIPine 5 MG TABLET PO SCH (09:00)
[2020-01-27] MEDS ORDERED: CITALOPRAM 20 MG TABLET PO SCH (09:00)
[2020-01-27] MEDS ORDERED: ERGOCALCIFEROL (VITAMIN D2) 50,000 UNIT CAPSULE PO SCH (09:00)
[2020-01-27] MEDS ORDERED: POLYETHYLENE GLYCOL 3350 17 GM PACKET PO SCH (09:00)
[2020-01-27] MEDS: SULFAMETHOXAZOLE/TRIMETHOPRIM 1 TABLET PO SCH (09:51)
[2020-01-27] MEDS: ASPIRIN 81 MG TAB.CHEW PO SCH (09:51)
[2020-01-27] MEDS: DOCUSATE SODIUM 100 MG CAPSULE PO SCH (09:52)
[2020-01-27] MEDS: oxyCODONE 10 MG TAB.ER.12H PO SCH (09:53)
[2020-01-27] MEDS: HYDROXYCHLOROQUINE 200 MG TABLET PO SCH (09:53)
[2020-01-27] MEDS ORDERED: PNEUMOCOCCAL 23-VAL P-SAC VAC 0.5 ML SYRINGE IM ONE (10:00)
[2020-01-27] MEDS: PILOCARPINE HCL PO SCH (10:02)
--- NOTE | 2020-01-27 12:15 | Operative Note ---
DATE OF OPERATION: 01/26/2020 PREOPERATIVE DIAGNOSIS: Instability, status post left total knee replacement. POSTOPERATIVE DIAGNOSIS: Instability, status post left total knee replacement. PROCEDURE: Liner exchange (polyethylene liner). SURGEON: Rahat Bradshaw M.D. WOOD GRINDER OPERATOR: Brown Bojorquez PA-C. This providers expertise and technical skill were required throughout the case. The GIANNI assisted with preoperative coordination, intraoperative retraction, wound closure, and dressing and splint application, as well as postoperative documentation and care coordination. ANESTHESIA: General, done by Kwasi Kimball M.D. TOURNIQUET TIME: 21 minutes. DESCRIPTION OF PROCEDURE: General anesthesia was obtained. The left leg was prepped and draped. The patient's previous midline incision was reopened. This was taken down sharply to the quadriceps and medial retinaculum. These were split longitudinally. There was gross instability of the knee noted under anesthesia with 20 degrees of hyperextension and 6-7 mm of play medially and laterally. The patella was mobilized laterally. The patient's previous liner was 13 mm and this was removed. We then trialed a 16 and a 19 mm insert, and got reasonable stability with the 19 mm. There was no hyperextension. The no-touch test showed the patella alignment. The patellofemoral joint alignment remained stable. A 19 mm dished liner was next impacted and final examination under anesthesia was done and the knee was stable in medial and lateral testing in extension and in flexion. After thorough irrigation, the wound was closed. Tourniquet time was 21 minutes. The quadriceps and medial retinaculum were closed with running Stratafix. The subcutaneous tissue was closed with buried 2-0 Monocryl and the skin was closed with ascencion. A sterile compressive dressing was applied. The sponge and needle count was correct. The patient tolerated the procedure well and was taken to the recovery room in stable condition. TJF:caitie Job ID: [id number] Doc ID: [id number] Rahat Bradshaw MD
== END 2020-01-27 14:25 | disposition home or self-care (01) | DRG 488 ==
LOC: MEDSUR 06:55 → EDSTATUS 09:30
PROVIDERS: ADMIT Orthopaedic Surgery Foot and Ankle Surgery; ATTEND Orthopaedic Surgery Foot and Ankle Surgery